=== PATIENT | female | born 1990 | race Two or more races ===

== ENCOUNTER 2017-06-22 20:29 | Emergency (ER) | payer OTHER ==
[~2017-06-22] VITALS: Ht 152.4 cm; Wt 83.9 kg
[2017-06-22] MEDS ORDERED: IRON18 MG (20:53)
[2017-06-22] MEDS ORDERED: PRENATAL TABLE1 EACH (20:53)
[2017-06-23] MEDS ORDERED: AMOX1TAB5 PO ×2 (06:14→06:15)
== END 2017-06-23 05:59 | disposition home or self-care (01) ==
LOC: ER 20:29
DX: O26.893 Other specified pregnancy related conditions, third trimester (principal); R19.7 Diarrhea, unspecified; Z34.01 Encounter for supervision of normal first pregnancy, first trimester

== ENCOUNTER 2017-07-11 19:06 | Outpatient (CLI) | payer OTHER ==
[~2017-07-11 19:06] MED LIST: AMOX1TAB5 PO; IRON18 MG; PRENATAL TABLE1 EACH
== END 2017-07-12 10:41 | disposition home or self-care (01) ==
LOC: OBS/DEL 19:06
DX: O26.893 Other specified pregnancy related conditions, third trimester (principal); Z04.1 Encounter for examination and observation following transport accident; O60.03 Preterm labor without delivery, third trimester; Z34.03 Encounter for supervision of normal first pregnancy, third trimester; V43.92XA Unspecified car occupant injured in collision with other type car in traffic accident, initial encounter; Y93.89 Activity, other specified; Y92.488 Other paved roadways as the place of occurrence of the external cause; Y99.8 Other external cause status

== ENCOUNTER 2017-07-21 10:15 | Inpatient (IN) | payer OTHER ==
[~2017-07-21] VITALS: Ht 152.4 cm; Wt 190.0 kg
== END 2017-08-04 15:03 | disposition home or self-care (01) | DRG 775 ==
LOC: OB/GYN 08-02 06:53 → LDR 08-02 06:53 → OB/GYN 08-02 15:43 → LDR 08-10 10:15
PROC: 0UQGXZZ Repair Vagina, External Approach (ICD-10-PCS; principal; 2017-08-02)
PROC: 10E0XZZ Delivery of Products of Conception, External Approach (ICD-10-PCS; 2017-08-02)
PROC: 4A1HXCZ Monitoring of Products of Conception, Cardiac Rate, External Approach (ICD-10-PCS; 2017-08-02)
PROC: 4A033R1 Measurement of Arterial Saturation, Peripheral, Percutaneous Approach (ICD-10-PCS; 2017-08-02)
DX: O71.4 Obstetric high vaginal laceration alone (principal); O24.410 Gestational diabetes mellitus in pregnancy, diet controlled; Z3A.38 38 weeks gestation of pregnancy; Z37.0 Single live birth